=== PATIENT | male | born 1945 | race Caucasian/White ===

== ENCOUNTER 2020-07-22 06:44 | Day surgery (SDC) | payer MEDICARE, BC ==
[2020-07-15 14:50] LABS: BASOPHILS # (AUTO) 0.1 X10'3 (0-0.2); BASOPHILS % (AUTO) 0.6 % (0-1); EOSINOPHILS # (AUTO) 0.2 X10'3 (0-0.9); EOSINOPHILS % (AUTO) 2.3 % (0-6); LYMPHOCYTES # (AUTO) 1.7 X10'3 (1.1-4.8); LYMPHOCYTES % (AUTO) 18.7 % (21-51); MEAN CORPUSCULAR HGB CONC 33.5 g/dL (33.0-36.5); MEAN CORPUSCULAR VOLUME 95.6 FL (78-98); MEAN PLATELET VOLUME 6.9 FL (7.4-10.4); MONOCYTES # (AUTO) 0.8 X10'3 (0-0.9); MONOCYTES % (AUTO) 8.4 % (2-12); NEUTROPHILS # (AUTO) 6.4 X10'3 (1.8-7.7); PRE OP HEMATOCRIT 46.5 % (42.0-52.0); PRE OP HEMOGLOBIN 15.6 g/dL (14.0-17.9); PRE OP PLATELET COUNT 255 X10'3 (140-440); RED BLOOD COUNT 4.86 X10'6 (4.70-6.10); RED CELL DISTRIBUTION WIDTH 14.8 % (11.5-14.5)
[2020-07-15 15:06] LABS: ALBUMIN 3.2 G/DL (3.4-5.0); ALBUMIN/GLOBULIN RATIO 0.8 (1.1-1.5); ALKALINE PHOSPHATASE 105 IU/L (46-116); BLOOD UREA NITROGEN 13 MG/DL (7-18); BUN/CREATININE RATIO 14.8 (5.4-32.0); CALCIUM 8.8 MG/DL (8.5-10.1); CHLORIDE 101 MMOL/L (99-107); CREATININE 0.88 MG/DL (0.60-1.10); PRE OP ALT 37 U/L (30-65); PRE OP ANION GAP 8 (8-16); PRE OP AST 31 U/L (10-37); PRE OP BILIRUB, TOTAL 0.4 MG/DL (0.0-1.0); PRE OP GLUCOSE 126 MG/DL (70-104); PRE OP POTASSIUM 3.8 MMOL/L (3.4-5.1); PRE OP SODIUM 136 MMOL/L (135-145); TOTAL CARBON DIOXIDE 27.3 MMOL/L (24-32); eGFR 84 ML/MIN
[~2020-07-22] VITALS: Ht 172.7 cm; Wt 67.0 kg
[~2020-07-22 06:44] MED LIST: ADV50500 IH; ATOR80TA PO; DULO-31 PO; FLO0.4C PO; MOME17SP NS; OMEP20TA5 PO; TEST1.25 TD; [UNRECOGNIZED DRUG - CODE] PO; albuterol 2.5 MG/3 ML nebule NEB ONE; ceFAZolin 2gm in dextrose, iso 50 ML IV ONE; famotidine 20mg tablet PO ONE; ringers solution, lacted 1,000 ML IV SCH
[2020-07-22] MEDS ORDERED: BUPIVAcaine/PF 2.5mg/ml (0.25%) 10ml vial ONE (06:46)
[2020-07-22] MEDS ORDERED: LIDOcaine 0.5% (5mg/ml) 50ml vial ONE (07:06)
[2020-07-22] MEDS ORDERED: labetalol 20mg/4ml (5mg/ml) syringe IV PRN (07:10)
[2020-07-22] MEDS ORDERED: ringers solution, lacted 1,000 ML IV SCH (07:10)
[2020-07-22] MEDS ORDERED: hydrALAZINE 20mg/ml inj. IV PRN (07:10)
[2020-07-22] MEDS ORDERED: fentaNYL/PF 50MCG/1 ML 2ML syringe IV PRN ×2 (07:10)
[2020-07-22] MEDS ORDERED: ondansetron/PF 4mg/2ml inj IV PRN (07:10)
[2020-07-22] MEDS ORDERED: morphine 4 MG/ML inj SYRINge IV PRN (07:10)
[2020-07-22] MEDS ORDERED: morphine 2 MG/ML inj. syringe IV PRN (07:10)
[2020-07-22 08:50] VITALS: BP 127/77
[2020-07-22] MEDS ORDERED: fentaNYL/PF 50MCG/1 ML 2ML syringe ONE (09:51)
[2020-07-22] MEDS ORDERED: midazolam 1 mg/ML 2ml injection ONE (09:52)
[2020-07-22 10:05] VITALS: BP 111/68
--- NOTE | 2020-07-22 10:05 | NUR ---
Received from OR via , accompanied by Anesthesiologist DR GHOTRA and report given by Anesthesiolgist. AWAKENS TO VOICE. VITALS STABLE. DRESSING DI. JOZEF PAIN.;
[2020-07-22 10:15] VITALS: BP 112/67
[2020-07-22 10:25] VITALS: BP 100/61
[2020-07-22 10:35] VITALS: BP 121/70
--- NOTE | 2020-07-22 10:45 | NUR ---
AWAKE AND ORIENTED. VITALS STABLE. DRESSING DI. JOZEF PAIN. HOME WITH HIS AT THIS TIME.
== END 2020-07-22 10:45 | disposition home or self-care (01) ==
LOC: PAS 06:44
PROVIDERS: ATTEND Orthopaedic Surgery Hand Surgery
DX: M65.351 Trigger finger, right little finger (principal); M67.441 Ganglion, right hand; J44.9 Chronic obstructive pulmonary disease, unspecified; K21.9 Gastro-esophageal reflux disease without esophagitis; M19.031 Primary osteoarthritis, right wrist; M19.049 Primary osteoarthritis, unspecified hand; M18.0 Bilateral primary osteoarthritis of first carpometacarpal joints; Z95.5 Presence of coronary angioplasty implant and graft; Z72.89 Other problems related to lifestyle; Z79.899 Other long term (current) drug therapy; Z98.890 Other specified postprocedural states
CPT/HCPCS: 26055; 26160; 36415; 80053; 82948; 85025; 93005; J2001; J2250; J3010; J3490; A4215; A6449; J7120